=== PATIENT | male | born 1985 | race Caucasian/White ===

== ENCOUNTER 2021-09-13 16:06 | Outpatient (CLI) | payer MEDICARE, MEDICAID ==
[2021-09-14 00:24] LABS: SARS-CoV-2 PCR by NAA Not Detected (NotDetected)
== END 2021-09-13 16:07 | disposition home or self-care (01) ==
LOC: LABBT 16:06
PROVIDERS: ATTEND Surgery
DX: K21.9 Gastro-esophageal reflux disease without esophagitis (principal); Z20.822 Contact with and (suspected) exposure to COVID-19
CPT/HCPCS: U0003; U0005